=== PATIENT | male | born 2000 | race Caucasian/White ===

== ENCOUNTER 2020-12-08 02:35 | Emergency (ER) | payer SELFPAY ==
[2020-12-08 02:40] VITALS: BP 153/101; PULSE 102; RESP 19; TEMP 37.1; O2SAT 95; BMI 25.0
--- NOTE | 2020-12-08 02:54 | PC.NURSE ---
Pt's right 3rd and 4th finger joint appear to be swollen. Pt stated that is where the pain is.
--- NOTE | 2020-12-08 03:00 | XRR_ITS ---
PROCEDURE INFORMATION: Exam: XR Right Hand Exam date and time: 12/08/2020 3:01 AM Age: 20 years old Clinical indication: Injury or trauma; Blunt trauma (contusions or hematomas); Right; Patient HX: Punched a table earlier this morning. Swelling to dorsal surface of hand. TECHNIQUE: Imaging protocol: XR Right hand. Views: 3 or more views. COMPARISON: No relevant prior studies available. FINDINGS: Bones/joints: There are acute, obliquely oriented fractures through the mid portions of the right 3rd and 4th metacarpals. There is mild to moderate displacement and angulation, greater involving the 3rd metacarpal. No other significant acute bone or joint abnormality. Soft tissues: Soft tissue swelling over the dorsum of the hand. XR/XR hand RT min 3V* [id number] IMPRESSION: Fractures of the right 3rd and 4th metacarpals, details above.
--- NOTE | 2020-12-08 03:36 | ED_ITS ---
HPI - Extremity Problem General: Chief complaint: Extremity Injury, Upper Stated complaint: hand injury Time Seen by Provider: 12/08/20 02:50 History of Present Illness: HPI Narrative: 20-year-old male comes in with pain to his right hand. He punched a table at approximately 1:20 AM. MD Complaint: extremity pain (Right hand pain) and extremity swelling Onset (ago): hour(s) (At 1:20 AM) Pain Consistency: constant Location: right and upper extremity (Right hand) Quality: sharp Radiation: none Relieving factors: nothing Exacerbating factors: range of motion and palpation Associated symptoms: Reports no associated symptoms Review of Systems Musc: Reports: extremity pain (Current chief complaint of right hand pain) Physical Exam Const: COMMON NORMALS: patient oriented x3 Extremity: COMMON NORMALS: capillary refill normal RIGHT UPPER EXTREMITY: Yes hand & digits (Swelling and tenderness noted to the right third and fourth metacarpal area) Right hand and digits: Yes inspection, Yes palpation (Point ten derness at the dorsum of his right hand.), Yes ROM exam (Increased pain with range of motion of the right hand) and Yes neurovascular exam Neuro: COMMON NORMALS: patient oriented x3 Course ED course: Hand x-ray shows right third and fourth metacarpal fractures Vital Signs: Vital signs: Vital Signs Temperature 98.8 F 12/08/20 02:40 Pulse Rate 96 12/08/20 04:19 Respiratory Rate 16 12/08/20 04:19 Blood Pressure 162/105 12/08/20 04:19 Pulse Oximetry 98 12/08/20 04:19 Discharge Plan Discharge Patient Disposition: Home Clinical Impression: Fracture of hand Qualifiers: Encounter type: initial encounter Fracture type: closed Laterality: right Qualified Code(s): S62.91XA - Unspecified fracture of right wrist and hand, initial encounter for closed fracture Condition: Stable Prescriptions: New hydrocodone-acetaminophen 5-325 mg tablet 1 tab PO Q6H PRN (Reason: pain) Qty: 10 RF: 0 Discharge Orders: Discharge ED (Routine); Ordered 12/08/20 Ordered By: Mundo Dickerson Referrals: Spencer Lerma MD [Physician] - (Right third and fourth midshaft metacarpal fractures.) Discharge Diet: Usual diet Discharge Activity: Limit activity as instructed Patient Instructions: Opioid Safety Activity Restrictions/Additional Instructions: Please take [id number] Motrin, ibuprofen, naproxen or Aleve, take with food. If you need a hand specialist you may follow-up with Dr. Fran Keita [facility], 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
[2020-12-08 04:19] VITALS: BP 162/105; PULSE 96; RESP 16; O2SAT 98
== END 2020-12-08 04:21 | disposition home or self-care (01) ==
PROVIDERS: Emergency Provider Emergency Medicine
DX: S62.302A Unspecified fracture of third metacarpal bone, right hand, initial encounter for closed fracture (principal); S62.304A Unspecified fracture of fourth metacarpal bone, right hand, initial encounter for closed fracture; W22.09XA Striking against other stationary object, initial encounter
CPT/HCPCS: 29125; 73130; 99283

== ENCOUNTER 2020-12-11 13:24 | Outpatient (CLI) | payer SELFPAY | END 2020-12-11 13:25 | disposition home or self-care (01) | LOC: SPT 13:26 | PROVIDERS: Visit Provider Orthopaedic Surgery | DX: Z46.89 Encounter for fitting and adjustment of other specified devices (principal); S62.30 Unspecified fracture of other metacarpal bone; S62.304S Unspecified fracture of fourth metacarpal bone, right hand, sequela; X58.XXXS Exposure to other specified factors, sequela | CPT/HCPCS: 97760; L3984 ==

== ENCOUNTER 2020-12-17 12:35 | Day surgery (SDC) | payer SELFPAY ==
[2020-12-16 15:11] VITALS: BMI 23.5
[2020-12-17] VITALS (10 sets, daily range): BP systolic 107–153; BP diastolic 56–81; PULSE 79–91; RESP 16–18; TEMP 36.1–36.9; O2SAT 94–100
--- NOTE | 2020-12-17 | SCC_ITS ---
Procedure Done: Open reduction internal fixation right long and ring finger 60.4 seconds of fluoroscopic guidance, for a cumulative dose of 0.98 mGy, was provided to Dr. Lerma by the radiology department. C-arm images of the RIGHT hand were saved for the patient's permanent record. [facility]
--- NOTE | 2020-12-17 12:52 | W.PM.OPSUD ---
Surgery/Procedure H&P Update DATE OF PROCEDURE: December 17, 2020 DATE H&P PERFORMED: 12/11/20 PREOP DIAGNOSIS: Fracture right hand long and ring finger card PLANNED PROCEDURE: Operation Date: 12/17/20 14:15 Proposed Procedures p ORIF Metacarpal rigth third and fourth fracture 31004 S62.302A S62.304A(Right) - Spencer Lerma MD
[2020-12-17] MEDS: sodium chloride 0.9% 1,000 ML 30 ML IV (13:28)
--- NOTE | 2020-12-17 13:57 | ANES.PREANE2 ---
Pre-Anesthetic Assessment Pre-Anesthetic Assessment: Height/Weight: Height 1.7 m Weight 68.039 kg Temp Pulse Resp BP Pulse Ox 98.5 F 79 18 128/81 98 12/17/20 13:03 12/17/20 13:03 12/17/20 13:03 12/17/20 13:03 12/17/20 13:03 Preop Diagnosis: Fracture right hand long and ring finger card Proposed Procedure: Operation Date: 12/17/20 14:15 Proposed Procedures p ORIF Metacarpal rigth third and fourth fracture 51957 S62.302A S62.304A(Right) - Spencer Lerma MD Familial anesthetic complications: none Was Beta Maged taken within 24 hours: N/A Was Clonidine taken within 24 hours: N/A Last intake: Intake Last Liquid Date 12/16/20 Last Liquid Time 23:15 Last Solid Date 12/16/20 Last Solid Time 19:30 Social: Social History: No alcohol and No tobacco Exam: Pre-Anes Outpt Exam: alert, oriented x 3, clear to auscultation bilaterally and regular rate & rhythm Airway: Cervical ROM: WNL MP: 3 Dentition: Full Musc/skel: Comments: 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
--- NOTE | 2020-12-17 15:53 | XR_ITS ---
WS: [id number] Right hand, C-arm fluoroscopy views, 12/17/2020 Clinical Data: OR PICTURES Comparison: Right hand, 12/08/2020. Findings: The fractures of the mid shafts of the right third and fourth metacarpals are reduced with the aid of small plates and multiple screws. XR/XR hand RT 2V 62589 Impression: Internal fixation of midshaft fractures of the right third and fourth metacarpa ls.
--- NOTE | 2020-12-17 16:00 | PM.OP ---
Operative Report Date of procedure: December 17, 2020 Pre-op Diagnosis: Fracture right hand long and ring finger card Post-op diagnosis: same Post-op Findings: The patient had displaced fractures the right hand long and ring finger Procedure Done: Open reduction internal fixation right long and ring finger Implants: Kanaranzi 2.3mm Variax 16 hole plate, cut to 8 hole and 7 holes Pathology: none sent Surgeon: Spencer Lerma Anesthesia: General Estimated blood loss (mL): 40 Tourniquet time (min): 68 Complications: none Findings: The patient had an oblique fracture of the midshaft long finger metacarpal and a transverse fracture midshaft of the ring finger metacarpa, both displaced and angulated Condition: stable Disposition: PACU Procedure: The patient was taken to the operating room and given 2 g of Ancef and a general endotracheal anesthesia. He is prepped and draped in the supine position with his right arm exposed. A timeout was performed. A tourniquet was inflated to 250 mmHg. An approximately 5 cm long incision was made centered between the long and ring finger metacarpals dorsally. Dissection was carried down bluntly through dorsal veins and the extensor tendons were identified. Next extensor to the long finger was mobilized radially and dissection carried down sharply to the metacarpal fracture. The fracture was provisionally held to length and reduced with a lobster claw clamp and fixed with a single interfragmentary screw retaining reduction. A eight hole plate was then contoured over the metacarpal and fixed proximally and distally with three bicortical screws all with reasonable purchase. Intraoperative images were obtained showing the fracture reduced however significant displacement was identified of the ring finger metacarpal and decision was made to proceed without fracture. The common extensor to the ring finger was then retracted radially and the dorsal ring finger metacarpal exposed. The transverse orientation the fracture did not allow for a compression screw. A seven hole plate was then placed dorsally and fixed with three distal and three proximal screws, with a screw placed in compression mode drilling nonconcentrically through the screw hole away from the fracture. On both sides and a locking screw used on both sides Hemostasis provided with electrocautery. The tourniquet was deflated. Wounds were irrigated with saline. Deep tissues were closed with 2-0 and 4-0 Vicryl suture. The skin was closed with interrupted 4-0 Prolene. Xeroflo gauze, 4 x 4's, web roll and Aidan wrap and the ulnar gutter splint was applied.
--- NOTE | 2020-12-17 16:04 | P.PCN_ITS ---
PACU note PACU note: VSS, Good respiratory effort, report to [facility] Post-Anesthesia Exam: awake
--- NOTE | 2020-12-17 16:04 | PM.PACU ---
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
[2020-12-17] MEDS: fentaNYL 50 mcg/mL INJ 2mL IVP ×2 (16:11→16:16)
[2020-12-17] MEDS: HYDROcodone-acetaminophen 5-325 mg Tablet 1 TAB PO (17:08)
--- NOTE | 2020-12-17 18:02 | ANE.PACU2 ---
Inpatient post-anesthesia follow up: Airway intact: Yes Vital signs: Temperature 97.7 F Pulse Rate 84 Respiratory Rate 18 Blood Pressure 153/78 Pulse Oximetry 96 Oxygen Delivery Me thod Room Air Oxygen Flow Rate Fraction of Inspir ed Oxygen Hydration adequate: Yes Nausea and vomiting: No Pain level: 3 Mental status: Baseline
== END 2020-12-17 17:49 | disposition home or self-care (01) ==
PROVIDERS: PCP Orthopaedic Surgery; Visit Provider Orthopaedic Surgery
PROC: (CPT 26615; principal; 2020-12-17 14:05)
DX: S62.602A Fracture of unspecified phalanx of right middle finger, initial encounter for closed fracture (principal); S62.604A Fracture of unspecified phalanx of right ring finger, initial encounter for closed fracture; W22.8XXA Striking against or struck by other objects, initial encounter
CPT/HCPCS: 26735 ×2; 73120; 76000; C1713; J0690; J2405; J2704; J3010; J7030

== ENCOUNTER → 2021-01-20 08:27 | Outpatient (BNVA) | payer SELFPAY | PROVIDERS: PCP Orthopaedic Surgery; Visit Provider Orthopaedic Surgery | DX: Z48.89 Encounter for other specified surgical aftercare (principal) | CPT/HCPCS: 73130 ==

== ENCOUNTER → 2021-02-10 13:02 | Outpatient (BNVA) | payer SELFPAY | PROVIDERS: PCP Orthopaedic Surgery; Visit Provider Orthopaedic Surgery | DX: Z48.89 Encounter for other specified surgical aftercare (principal); S62.302A Unspecified fracture of third metacarpal bone, right hand, initial encounter for closed fracture; S62.304A Unspecified fracture of fourth metacarpal bone, right hand, initial encounter for closed fracture; X58.XXXA Exposure to other specified factors, initial encounter | CPT/HCPCS: 73130 ==